=== PATIENT | male | born 1970 ===

== ENCOUNTER → 2025-11-14 | Outpatient (CLI) | payer OTHER ==
--- NOTE | 2025-11-15 08:32 | HMCIMG ---
EXAM: CT Cardiac calcium scoring. CLINICAL HISTORY: CAD screening. TECHNIQUE: Thin collimated axial CT cardiac images were obtained. A CT scan is done according to ALARA (As Low As Reasonably Achievable). CONTRAST: None. COMPARISON: None provided. FINDINGS: Calcium Score: VESSEL Number of lesions Volume mm3 Equi. Mass/mg Calcium score LM 2 14.4 --.-- 22.0 LAD 3 12.2 --.-- 13.3 LCX 0 00.00 --.-- 00.00 RCA 5 73.9 --.-- 96.3 Total 10 100.5 --.-- 131.6 IMPRESSION: The calcium score is 131.6. This places the patient into 75th percentile in comparison to a group of patients asymptomatic for coronary artery disease with the same age and gender. This means that 75% of males aged 50-54 have a calcium score that is lower than the patient's. /Gayathri
== END | disposition home or self-care (01) ==
LOC: RAH 14:49
PROVIDERS: ATTEND Internal Medicine
DX: Z13.6 Encounter for screening for cardiovascular disorders (principal)
CPT/HCPCS: 75571